=== PATIENT | male | born 1995 | race Caucasian/White ===

== ENCOUNTER 2021-10-01 16:06 | Emergency (ER) | payer BC ==
[~2021-10-01] VITALS: Ht 175.3 cm; Wt 108.9 kg
[2021-10-01 16:10] VITALS: BP_SYST 157
[2021-10-01] MEDS ORDERED: ACET-2634 PO (16:38)
[2021-10-01 17:25] VITALS: BP_SYST 120
--- NOTE | 2021-10-01 17:27 | NUR ---
patient discharged at this time in stable condtion, vss, no pain. will fu with plastic surgery technician
== END 2021-10-01 17:25 | disposition home or self-care (01) ==
LOC: SED 16:06
DX: M26.621 Arthralgia of right temporomandibular joint (principal); Z79.899 Other long term (current) drug therapy
CPT/HCPCS: 99282